=== PATIENT | female | born 1965 | race Caucasian/White ===

== ENCOUNTER → 2016-07-01 | Outpatient (CLI) | payer BC ==
[~2016-07-01] MED LIST: ADVIN10/60 INH; AGM875 PO; ALBUAER2 INH; ALL60 PO
--- NOTE | 2016-07-01 16:08 | DIAGNOSTIC IMAGING REPORT ---
RIGHT SHOULDER MIN 2 VIEWS CLINICAL HISTORY: Right shoulder pain. COMPARISON: None FINDINGS: Alignment of the right shoulder is anatomic. No acute fracture is identified. 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 Subtle irregularity of the inferior glenoid is likely artifactual IMPRESSION: 1. No acute fracture or dislocation of the right shoulder. 2. Mild right AC joint arthrosis. 2. Subtle irregularity of the inferior glenoid which is likely artifactual. A bony Bankart could appear similar but is considered less likely. Electronically signed by: Gm Serrato M.D. 07/01/2016 4:07 PM Dictated Date/Time: 07/01/2016 4:03 PM
== END | disposition home or self-care (01) ==
LOC: C.RDSM 15:52
PROVIDERS: ATTEND Family Medicine
DX: M25.511 Pain in right shoulder (principal)

== ENCOUNTER → 2016-08-27 | Outpatient (CLI) | payer BC ==
[~2016-08-27] MED LIST changes: +OPTIRAY 320 IV PRN
[2016-08-27 11:11] LABS: BASO % 0.5 %; BASO ABS # 0.03 K/uL (0-0.2); EOS % 5.2 %; HEMATOCRIT 42.5 % (37-47); LYMPH % 30.5 %; LYMPH ABS # 1.75 K/uL (1.2-3.4); MEAN CELL VOLUME 82.7 fL (80-100); MEAN CORPUSCULAR HEMOGLOBIN 25.9 pg (25-34); MEAN PLATELET VOLUME 11.6 fL (7.4-10.4); MONO % 7.5 %; NEUT % 56.3 %; PLATELET COUNT 269 K/uL (130-400); RED BLOOD COUNT 5.14 M/uL (4.2-5.4); WHITE BLOOD COUNT 5.74 K/uL (4.8-10.8)
[2016-08-27 11:16] LABS: COMPLETE YES; MEAN CORPUSCULAR HGB CONC 31.3 g/dl (32-36)
[2016-08-27 11:38] LABS: BLOOD UREA NITROGEN 13 mg/dl (7-18); BUN/CREATININE RATIO 16.5 (10-20); CALCIUM 9.3 mg/dl (8.5-10.1); CARBON DIOXIDE 30 mmol/L (21-32); CHLORIDE 106 mmol/L (98-107); GLUCOSE 95 mg/dl (70-99); POTASSIUM 4.2 mmol/L (3.5-5.1); SODIUM 142 mmol/L (136-145)
--- NOTE | 2016-08-27 13:28 | DIAGNOSTIC IMAGING REPORT ---
CT SCAN OF THE ABDOMEN AND PELVIS WITH IV CONTRAST CLINICAL HISTORY: Left lower quadrant abdominal pain. COMPARISON STUDY: Abdominal ultrasound dated 08/10/2008. TECHNIQUE: Following the IV administration of 92 cc of Optiray 320, CT scan of the abdomen and pelvis is performed from the lung bases to the proximal femora. Images are reviewed in the axial, sagittal, and coronal planes. IV contrast was administered without complication. Automated dose control exposure was utilized. CT DOSE: 736.81 mGycm FINDINGS: Lung bases: The heart is top normal in size and without pericardial effusion. The lung bases are clear noting dependent atelectasis. There is a tiny hiatal hernia. Liver: The contrast-enhanced liver is normal in size, contour, and attenuation. There is no intrahepatic biliary ductal dilatation. The hepatic veins and portal veins are patent. Gallbladder: Unremarkable. Spleen: Normal in size and attenuation. Pancreas: Unremarkable. Adrenal glands: Unremarkable. Kidneys: The contrast enhanced kidneys are normal in size and without hydronephrosis. The kidneys enhance symmetrically. Abdominal vasculature: The abdominal aorta is normal in course and caliber. Bowel: The small bowel and colon are normal in course and caliber. There is moderate to severe constipation. The appendix is well-visualized and normal. Peritoneum: There is no intraperitoneal free air or abdominal ascites. There is a small fat-containing umbilical hernia. Lymphadenopathy: None. Pelvic viscera: The bladder, uterus, and adnexa are normal as imaged. Skeletal structures: No lytic or blastic lesions are seen. IMPRESSION: 1. There are no acute infectious or inflammatory findings in the abdomen or pelvis. 2. Moderate to severe constipation. Electronically signed by: Darwin Lin M.D. 08/27/2016 1:26 PM Dictated Date/Time: 08/27/2016 1:21 PM
== END | disposition home or self-care (01) ==
LOC: C.CTS 10:47
PROVIDERS: ATTEND Family Medicine Adolescent Medicine
DX: R10.32 Left lower quadrant pain (principal); K59.00 Constipation, unspecified